=== PATIENT | female | born 2000 | race Caucasian/White ===

== ENCOUNTER 2020-10-03 10:47 | Emergency (ER) | payer BC ==
[2020-10-03] MEDS ORDERED: ONDANSETRON *ODT* 4 MG TABLET SL ONE (10:51)
[2020-10-03] MEDS ORDERED: ONDANSETRON *ODT* 4 MG TABLET ONE (11:28)
[2020-10-03] MEDS ORDERED: SUCRALFATE 1 GM TABLET (FP) PO ONE (11:29)
[2020-10-03] MEDS ORDERED: FAMOTIDINE 10 MG TABLET PO ONE (11:29)
[2020-10-03] MEDS ORDERED: MAG HYDROX/AL HYDROX/SIMETH 30 ML UNIT-DOSE CUP PO ONE (11:29)
[2020-10-03] MEDS ORDERED: FAMOTIDINE 20 MG TABLET ONE (11:45)
[2020-10-03] MEDS ORDERED: MAG HYDROX/AL HYDROX/SIMETH 30 ML UNIT-DOSE CUP ONE (11:46)
[2020-10-03] MEDS ORDERED: SUCRALFATE 1 GM/10 ML UNIT DOSE CUPS ONE (11:46)
[2020-10-03 12:43] VITALS: BP 117/78; PULSE 66; TEMP 98.8; BMI 21.4
[2020-10-03] MEDS ORDERED: FLUCONAZOLE 150 MG TABLET PO ONE ×2 (13:29→14:06)
== END 2020-10-03 14:16 | disposition home or self-care (01) ==
LOC: FER 10:47
DX: B37.3 Candidiasis of vulva and vagina (principal)
CPT/HCPCS: 36415; 84703; 87491; 87591; 99283-25; Q0162

== ENCOUNTER 2022-04-19 13:45 | Emergency (ER) | payer BC ==
[2022-04-19 14:04] VITALS: BP 121/87; PULSE 116; RESP 18; TEMP 98.7; BMI 20.5
== END 2022-04-19 14:15 | disposition home or self-care (01) ==
LOC: FER 13:45
DX: T19.2XXA Foreign body in vulva and vagina, initial encounter (principal)
CPT/HCPCS: 99282-25